=== PATIENT | female | born 1960 | race Caucasian/White ===

== ENCOUNTER → 2019-10-18 15:19 | Outpatient (CLI) | payer MEDICAID, SELFPAY ==
--- NOTE | ~2019-10-18 | XR_ITS ---
EXAMINATION: XR ribs BI 3V w CXR 2V INDICATION: Bronchitis, pleurodynia, bilateral rib pain TECHNIQUE: PA and lateral views of the chest and views of the bilateral ribs were obtained. COMPARISON: 12/21/2010 FINDINGS: The lungs are free of acute opacities. There is no pleural effusion or pneumothorax. The ca rdiomediastinal silhouette is normal. There is moderate thoracic spondylosis. No displaced rib fractu re is identified. IMPRESSION: 1. No acute cardiopulmonary abnormality or evidence of displaced rib fracture. Reviewed, dictated and finalized at location A. ERENCE PRODUCER
== END ==
PROVIDERS: PCP Nurse Practitioner Family; Visit Provider Nurse Practitioner Family
DX: R07.81 Pleurodynia (principal); J40 Bronchitis, not specified as acute or chronic
CPT/HCPCS: 71045; 71111

== ENCOUNTER 2021-07-23 17:40 | Emergency (ER) | payer OTHER, BC, SELFPAY ==
--- NOTE | ~2021-07-23 | XR_ITS ---
XR shoulder LT min 2V 07/23/2021 20:04 INDICATION: Left shoulder pain after blunt trauma PROCEDURE: 4 views left shoulder COMPARISON: No prior studies for comparison. FINDINGS: Fracture, dislocation or subluxation is not identified. There is mild polyarticular osteoar thritis of the left shoulder. The soft tissues appear within normal limits. No foreign bodies are id entified. IMPRESSION: 1: NO ACUTE BONE OR JOINT ABNORMALITY IDENTIFIED. Reviewed, dictated and finalized at location A.
--- NOTE | ~2021-07-23 | XR_ITS ---
XR hand LT min 3V 07/23/2021 20:04 Indication: Left hand pain after blunt trauma Procedure: 3 views left hand Comparison: No prior studies for comparison. Findings: There is a distal metaphyseal fracture of the left radius with mild dorsal angulation. No d efinite intra-articular extension. There is mild polyarticular osteoarthritis primarily involving the interphalangeal joints. Impression: 1: Nondisplaced extra-articular distal radial metaphyseal fracture with mild dorsal angulation. Moder ate ventral soft tissue swelling. Reviewed, dictated and finalized at location A. Impression: 1: Nondisplaced extra-articular distal radial metaphyseal fracture with mild do rsal angulation. Moderate ventral soft tissue swelling.
--- NOTE | ~2021-07-23 | XR_ITS ---
XR wrist LT min 3V 07/23/2021 20:29 Indication: Left wrist pain after trauma Procedure: 4 views left wrist Comparison: 07/23/2021 Findings: There is a comminuted intra-articular fracture of the distal aspect of the left radius with mild dorsal angulation. Mild ventral soft tissue swelling. No foreign bodies. No other fracture iden tified. Scaphoid appears intact. Impression: 1: Nondisplaced comminuted intra-articular fracture distal aspect of the left radius with mild dorsal angulation. Reviewed, dictated and finalized at location A. Impression: 1: Nondisplaced comminuted intra-articular fracture distal aspect of the left r adius with mild dorsal angulation.
[2021-07-23 19:03] VITALS: BP 125/80; PULSE 82; RESP 18; TEMP 36.8; O2SAT 99
[2021-07-23] MEDS: HYDROcodone/acetaminophen (*CRX) 5-325 MG TABLET 1 TAB PO (20:47)
--- NOTE | 2021-07-23 21:12 | ED.GENADULT ---
HPI - General Adult General Chief complaint: Extremity Injury, Upper Stated complaint: left arm pain after fall Time Seen by Provider: 07/23/21 19:43 History of Present Illness HPI narrative: Patient is a 61-year-old female who presents ER with left upper extremity injury. Patient works for a [employer] and a load bar failed with pallets of material falling on her causing her to go to the ground. She developed sudden pain and swelling in her left wrist and hand. She also has some mild pain in her left shoulder. Limited range of motion at the wrist. No new numbness or tingling. She did not strike her head or lose consciousness. She is not on any blood thinners. Denies back/neck pain. Related Data Home Medications Medication Instructions Recorded Confirmed bupropion HCl 150 mg PO BID 08/01/19 10/12/19 hydrocodone-acetaminophen 1 tablet PO Q8H PRN 08/01/19 10/12/19 nicotine 1 patch TRANSDERMAL DAILY 08/01/19 10/12/19 quetiapine 300 mg PO HS 08/01/19 10/12/19 ropinirole 3 mg PO HS 08/01/19 10/12/19 Allergies Allergy/AdvReac Type Severity Reaction Status Date / Time Sulfa (Sulfonamide Allergy Mild Rash Verified 07/23/21 19:44 Antibiotics) Penicillins Allergy Unknown Rash Verified 07/23/21 19:44 sulfanilamide Allergy Unknown Rash Verified 07/23/21 19:44 Review of Systems Review of Systems: All systems reviewed & are unremarkable except as noted in HPI and below Constitutional: Constitutional: Denies chills, Denies fever(s) and Denies weakness Musculoskeletal: Musculoskeletal: Denies back pain, Reports arthralgias, Reports joint swelling and Denies muscle cramps Integumentary/Breasts: Skin/Breast: Denies erythema and Denies rash Neurologic: Denies syncope, Denies focal weakness and Denies numbness [facility] Past Medical History Medical History (Updated 07/23/21 @ 21:17 by Justino Ren MD) Anxiety Restless leg syndrome Surgical History Surgical History (Updated 07/23/21 @ 21:15 by Justino Ren MD) History of appendectomy Family History Family History (Updated 02/02/11 @ 08:12 by DOCTOR UNKNOWN) Other Cerebrovascular accident Social History Social History Alcohol intake: current Gender identity (if verbalized by the patient): Female Exam Narrative: GENERAL: Well-appearing, well-nourished, and in no acute distress. HEAD: Normocephalic, atraumatic. NECK: Supple. No neck tenderness. CHEST: Clear to auscultation. No respiratory distress. HEART: Regular rate and rhythm. Normal peripheral pulses. EXTREMITIES: Focused exam of the left lower extremity reveals decreased range of motion of the left wrist and no other joint. Mild tenderness of the left shoulder but very tender at left wrist and dorsum of the hand. There is swelling over the dorsum of the hand with bruising likely related to venous injury. SKIN: Warm, dry, no rash. NEURO: Alert and oriented x3. PSYCH: Normal mood and affect. Course Course Emergency Course: Patient informed of results. Nurses placed a volar splint on the patient. [place] for pain. Discharge home with work note. Will refer to orthopedic surgery. Vital Signs Vital signs: Vital Signs Temperature 98.2 F 07/23/21 19:03 Pulse Rate 82 07/23/21 19:03 Respiratory Rate 18 07/23/21 19:03 Blood Pressure 125/80 07/23/21 19:03 Pulse Oximetry 99 07/23/21 19:03 Temperature 98.2 F 07/23/21 19:03 Pulse Rate 82 07/23/21 19:03 Respiratory Rate 18 07/23/21 19:03 Blood Pressure 125/80 07/23/21 19:03 Pulse Oximetry 99 07/23/21 19:03 Medical Decision Making Vital Signs Vital Signs: Vital Signs Temperature 98.2 F 07/23/21 19:03 Pulse Rate 82 07/23/21 19:03 Respiratory Rate 18 07/23/21 19:03 Blood Pressure 125/80 07/23/21 19:03 Pulse Oximetry 99 07/23/21 19:03 Temperature 98.2 F 07/23/21 19:03 Pulse Rate 82 07/23/21 19:03 Respiratory Rate 18 07/23/21 19:03 Blood Pressure 125/80
== END 2021-07-23 21:30 | disposition home or self-care (01) ==
PROVIDERS: Emergency Provider Emergency Medicine; PCP Nurse Practitioner Family
DX: S52.552A Other extraarticular fracture of lower end of left radius, initial encounter for closed fracture (principal); F41.9 Anxiety disorder, unspecified; G25.81 Restless legs syndrome; W20.8XXA Other cause of strike by thrown, projected or falling object, initial encounter
CPT/HCPCS: 29125; 73030; 73110; 73130; 99284; A9270

== ENCOUNTER 2024-01-01 17:00 | Emergency (ER) | payer OTHER, BC, SELFPAY ==
[2024-01-01 17:21] VITALS: BP 150/81; PULSE 78; RESP 16; TEMP 37.2; O2SAT 100
--- NOTE | 2024-01-01 17:40 | ED.GENADULT ---
HPI - General Adult General Chief complaint: Extremity Injury, Upper Stated complaint: Injured Right Arm Time Seen by Provider: 01/01/24 17:34 Source: patient, RN notes reviewed and old records reviewed Mode of arrival: ambulatory Limitations: no limitations History of Present Illness HPI narrative: 63-year-old female to [facility] for complaint of right shoulder pain that started 3 nights ago while sleeping. Patient states pain woke her from her sleep. Patient denies any known injury. 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 Patient reports that the last time she was active with her right arm/shoulder was while she was working on Monday. Patient denies any obvious pain or obvious time of injury while working that day. Patient states it was that night while sleeping that the pain started and woke her from her sleep. Patient endorses history of osteoarthritis and states that she is seen by Orthopedics for injections in her bilateral shoulders. Patient denies any other pertinent history. Patient holding right arm in neutral position and supporting with left arm in exam room. Related Data Home Medications Medication Instructions Recorded Confirmed bupropion HCl 150 mg tablet,12 hr 150 mg PO BID 08/01/19 01/01/24 sustained-release hydrocodone 5 mg-acetaminophen 325 1 tablet PO Q8H PRN Pain 08/01/19 01/01/24 mg tablet nicotine 14 mg/24 hr daily 1 patch transdermal DAILY 08/01/19 01/01/24 transdermal patch quetiapine 300 mg tablet 300 mg PO HS 08/01/19 01/01/24 buprenorphine HCl 300 mcg buccal 300 mcg buccal DAILY 01/01/24 01/01/24 film ([place]) Allergies Allergy/AdvReac Type Severity Reaction Status Date / Time Sulfa (Sulfonamide Allergy Mild Rash Verified 01/01/24 17:24 Antibiotics) Penicillins Allergy Unknown Rash Verified 01/01/24 17:24 sulfanilamide Allergy Unknown Rash Verified 01/01/24 17:24 Review of Systems Review of Systems: All systems reviewed & are unremarkable except as noted in HPI and below Constitutional: Constitutional: Reports no additional constitutional complaints Eyes: Eyes: Reports no additional eye complaints ENT: Reports system reviewed and no additional complaints, except as documented Cardiovascular: Cardiovascular: Reports no additional cardiovascular complaints, Denies chest pain and Denies dyspnea Respiratory: Respiratory: Reports no additional respiratory complaints, Denies cough and Denies dyspnea Musculoskeletal: Musculoskeletal: Reports as per HPI, Denies back pain, Reports limited range of motion ( right shoulder), Reports muscle weakness, Denies neck pain, Denies numbness and Denies tingling Neurologic: Reports as per HPI, Denies numbness, Denies Sensory deficit (Neuro) and Denies tingling Psychiatric: Psychiatric: Reports no additional psychiatric complaints PMFSH Past Medical History Medical History (Updated 01/01/24 @ 17:57 by Roula Roa APRN) Anxiety Restless leg syndrome Surgical History Surgical History (Updated 07/23/21 @ 21:15 by Justino Ren MD) History of appendectomy Family History Family History (Updated 02/02/11 @ 08:12 by DOCTOR UNKNOWN) Other Cerebrovascular accident Social History Social History Alcohol intake: current Gender identity (if verbalized by the patient): Female Comments At the time of my signature, I reviewed and agree with the nursing past medical, surgical, social, and family history. There is no relevant family history pertinent to the patient complaint. Exam Const: General: cooperative, comfortable, no acute distress, alert, uncomfortable and well nourished Nutritional Appearance: well nourished Orientation/consciousness: patient oriented x3 Limitations: no limitations HENMT: Head: normal to inspection Ears: external ears normal Face/Nose/Sinus: Normal external nose present, Shireen
== END 2024-01-01 18:22 | disposition home or self-care (01) ==
PROVIDERS: Emergency Provider Nurse Practitioner Family; PCP Family Medicine
DX: M75.41 Impingement syndrome of right shoulder (principal); F41.9 Anxiety disorder, unspecified; G25.81 Restless legs syndrome
CPT/HCPCS: 99212; A4565; G0463